=== PATIENT | female | born 1955 | race Caucasian/White ===

== ENCOUNTER → 2019-07-12 10:41 | Outpatient (CLI) | payer MEDICARE, OTHER, SELFPAY | PROVIDERS: Family Provider Family Medicine Geriatric Medicine; PCP Family Medicine Geriatric Medicine; Visit Provider Specialist | DX: N39.0 Urinary tract infection, site not specified (principal) | CPT/HCPCS: 87077; 87086; 87186 ==

== ENCOUNTER → 2022-04-13 10:04 | Outpatient (CLI) | payer MEDICARE, OTHER, SELFPAY ==
[2022-04-13 12:03] LABS: COVID19 -Nasal RAPID Negative (Negative)
== END ==
PROVIDERS: Family Provider Family Medicine Geriatric Medicine; PCP Family Medicine Geriatric Medicine; Referring Provider Orthopaedic Surgery; Visit Provider Orthopaedic Surgery
DX: Z20.822 Contact with and (suspected) exposure to COVID-19 (principal)
CPT/HCPCS: 87635; C9803

== ENCOUNTER 2022-04-14 06:12 | Day surgery (SDC) | payer MEDICARE, OTHER, SELFPAY ==
[2022-03-23 09:43] VITALS: BMI 25.8
[2022-04-14] VITALS (13 sets, daily range): BP systolic 103–131; BP diastolic 44–73; PULSE 54–600; RESP 10–18; TEMP 36.2–36.9; O2SAT 97–100; BMI 25.8
[2022-04-14] MEDS: LACTATED RINGERS 1,000 ML 42 ML IV ×2 (07:06→09:45)
--- NOTE | 2022-04-14 07:54 | PM.PREOP ---
Pre-operative Note COVID-19 COVID-19 status: Negative Interval Note History & Physical reviewed/Exam performed by Physician: Yes Changes to H&P: No
[2022-04-14] MEDS: CELECOXIB 200 MG CAPSULE PO (07:55)
[2022-04-14] MEDS: ACETAMINOPHEN 325 MG TABLET 975 MG PO (07:55)
--- NOTE | 2022-04-14 08:00 | DI.RAD.S_ITS ---
PROCEDURE: XR KNEE RT 1TO2V INDICATIONS: POST OP TOTAL KNEE TECHNIQUE: 2 view(s) of the knee acquired. COMPARISON: [facility] Gonzalez, XR KNEE ARTHRITIC SERIES BI, 10/24/2021, 10:14. FINDINGS: Bones: Patient is status post knee joint arthroplasty. Hardware components are in expected positions. Visualized bony structures are intact. Soft tissues: Overlying postoperative changes are noted. IMPRESSION: Expected postoperative changes following knee arthroplasty. Dictated by: Mitch Cat M.D. on 04/14/2022 at 16:30 Approved by: Mitch Cat M.D. on 04/14/2022 at 16:30
[2022-04-14] MEDS: VANCOMYCIN 1,000 MG/200 ML PIGGYBACK 200 MG IV (08:15)
[2022-04-14] MEDS: CEFAZOLIN 2 GM IN 0.9 % NACL 100 ML IV ×3 (08:15→23:40)
[2022-04-14] MEDS: TRANEXAMIC ACID 1,000 MG VIAL 2000 MG INJ ×2 (08:30→10:19)
--- NOTE | 2022-04-14 08:49 | SUR.OPER ---
Supine on padded OR bed. Pillow under head, arms secured on padded armboards <90 degree abduction. Safety belt across torso. Non-operative leg secured with tape over blanket over lower leg. Operative leg secured in [employer] positioner. Foam padded brace at thigh of operative leg.
[2022-04-14] MEDS: BUPIVACAINE 0.5% (PF) 30 ML, EPINEPHrine 0.15 MG INJ (10:00)
[2022-04-14] MEDS: SODIUM CHLORIDE IRRIG SOLUTION 250 ML, POVIDONE-IODINE SPONGE STICKS 1 APPLIC IRR (10:00)
[2022-04-14] MEDS: BUPIVACAINE LIPOSOME 266 MG/20 ML VIAL INJ (10:00)
[2022-04-14] MEDS: OXYCODONE IR 5 MG TABLET PO ×2 (10:55→20:33)
[2022-04-14] MEDS: METOCLOPRAMIDE 10 MG/2 ML INJ IV (10:56)
--- NOTE | 2022-04-14 11:04 | SUR.PHASEI ---
Addendum entered by Marian Khan R.N. 04/14/22 11:24: 1124: Report given to receiving RN using SBAR with time allowed for questions. Pt tranferred to room 203 with all personal belongings. Called to update spouse left message. Original Note: 1104: Pt A&Ox4, VSS, dressing C/d/I, reports pain 4-5/10 PRN given, spinal level at L5, taking PO without any issues and ready to transfer to room. Attempt to call report to floor, RN busy at this time, will return call when available. UGO Fonseca x [phone].
--- NOTE | 2022-04-14 12:52 | PC.NURSE ---
Addendum entered by Mary Lou Duffy R.N. 04/14/22 20:00: tolerated ambulating to/from bathroom w/ steady gait. after this was done a few times, bed alarm turned off, and when patient's in the room gave the ok to ambulate w/ his assist. encouraged patient and to call at any time if any questions or concerns. but patient seems highly motiviated to participate w/ therapy, and to get back on her feet quickly. she is in the room doing her PT exercizes. denies pain/discomfort, routine tylenol and ibuprofen covering her pain . tolerating IVF, iv abx. tolerating meals, and is in good spirits. voiding well. call from Dr Rock, asking if patient wants to stay or go home tonight. patient and opted to stay overnight. notified of above, and plans to d/c patient in the morning. Original Note: report from PACU given to UGO Sheldon. patient arrived to floor via stretcher and admitted to room 204 at 1135.
[2022-04-14] MEDS: ONDANSETRON 4 MG/2 ML INJ IV ×2 (13:09→20:34)
[2022-04-14] MEDS: polyethylene glycoL 3350 17 GM POWD.PACK PO (13:09)
[2022-04-14] MEDS: IBUPROFEN 400 MG TABLET PO ×4 (13:10→23:40)
[2022-04-14] MEDS: ACETAMINOPHEN 325 MG TABLET 650 MG PO ×3 (13:11→23:40)
[2022-04-14] MEDS: LACTATED RINGERS 1,000 ML 100 ML IV (13:13)
--- NOTE | 2022-04-14 16:25 | PT.IIE ---
Addendum entered and electronically signed by Shantell Randle PT 04/14/22 19:08: This is to certify that I reviewed and in direct supervision during this PT session Original Note: Current Diagnoses Unilateral primary osteoarthritis, left knee (04/14/22) Unilateral post-traumatic osteoarthritis, right knee (04/14/22) Surgery Performed Operation Date: 04/14/22 07:45 Actual Procedures p Total Knee Arthroplasty(Right) - Antoinette Rock MD Surgical History (Last Updated 03/23/22 @ 10:12 by Liza Alfaro RN) History of bunionectomy of right great toe History of laparotomy Hx of appendectomy Hx of knee surgery (1986) Hx of tonsillectomy Medical History (Last Reviewed 04/14/22 @ 06:59 by Geoff Keys RN) Chronic fatigue syndrome Fibromyalgia Hx of gastroesophageal reflux (GERD) Hypothyroidism Osteoarthritis Palpitations Suspected sleep apnea Physical Therapy Inpatient Evaluation/Re-Eval M1 PT/OT-IP Prior Functional Status Start: 04/14/22 17:18 Freq: NEEDED Status: Active Protocol: Document 04/14/22 16:25 (Rec: 04/14/22 19:06 [id number]) Medical Review Prior Functional Status Medical History Reviewed Yes Communication pt able to make needs known. Mobility and Gait pt reports ability to ambulate in household without use of AD. able to ambulate furthest distance of half a block due to limited strength and endurance caused by R knee pain. Social History Household Members spouse Living Arrangements House Number of Floors (Floors) One Floor Number of Stairs To Enter/Railing? pt reports 5 steps to enter with R rails. 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 M2 PT-IP Current Condition Start: 04/14/22 17:18 Freq: NEEDED Status: Active Protocol: Document 04/14/22 16:25 (Rec: 04/14/22 19:06 [id number]) Physical Therapy Current Condition Current Condition Evaluation Date 04/14/22 Treatment Diagnosis S/P R TKA; difficulty in walking Onset Date 04/14/22 M3 PT-IP Subjective Start: 04/14/22 17:18 Freq: NEEDED Status: Active Protocol: Document 04/14/22 16:25 (Rec: 04/14/22 19:06 [id number]) Subjective Physical Therapy Visit Type Type Initial Evaluation Visit Start Time 16:25 Visit Stop Time 17:08 Total Visit Minutes 43 Number of PUBLIC RELATIONS INTERN Visits 0 Physical Therapy Visit Comments Patient Comments pt agreeable to do PT M4 PT-IP Mobility and Gait Start: 04/14/22 17:18 Freq: NEEDED Status: Active Protocol: Document 04/14/22 16:25 (Rec: 04/14/22 19:06 [id number]) PT-Bed Mobility Assessment Supine to Sit Supine to Sit Standby Assistance Sit to Supine Sit to Supine Standby Assistance Scooting Scooting to Edge of Bed Standby Assistance PT-Transfer Assessment Sit to and From Stand Sit to and from Stand Standby Assistance,Contact Guard Assistance,Use of Upper Extremities Equipment Transfer Assistive Device Gait Belt,Front Wheeled Walker Orthotic/Prosthetic Devices or Brace: No Transfers Transfer Destination Chair Transfer Technique ambulation Transfer Ability Level of Assist Standby Assistance,Contact Guard Assistance Comments Mobility Comments BP in supine 129/59. pt completed supine to sit SBA, no cueing. completed sit to stand SBA to CGA with minimal cueing using FWW. pt ambulated ~15 ft to chair CGA with FWW with min cueing. pt completed sit to stand from chair SBA to CGA with FWW min cues. pt ambulated ~200ft to stairs SBA to CGA with FWW min cues. educated pt and spouse regarding stair climbing. pt ascended and descended stairs using both hands on R rail CGA with min cueing with PT, pt repeated with spouse assisting . spouse understood and safely assisted pt. pt ambulated ~ 200ft back to chair with FWW SBA to CGA, min cueing. pt requested to sit in chair, positioned, call light and table placed within reach. educated spouse on gait belt, spouse able to effectively demonstrate. Gait Assessment Gait Gait Assistance Required: Standby Assistance,Contact Guard Assist,1 Person Assist Distance (Feet) 200 Able to Maintain Weight Bearing Status Yes During Gait Assistive Devices Assistive Device Gait Belt,Front Wheeled Walker Orthotic/Prosthetic Devices or Brace: No Gait Deviations General Gait Pattern Within Normal Limits,Narrow Based Gait Factors Limiting Gait Function Factors Limiting Gait Function Decreased Activity Tolerance, Decreased Sensation,Decreased Strength,Limited Range of Motion,Pain,Poor Balance,Poor Safety Awareness Stair Climbing Assessment Evaluation Level of Assist On Stairs Contact Guard Assistance,1 Person Assistance Devices Stair Climbing Assistive Devices Right Railing Technique/Endurance Stair Climbing Direction Ascend and Descend Stair Climbing Technique Step to Step PT-Balance Assessment Sitting Balance and Reactions Static Sitting Balance Ability Normal Dynamic Sitting Balance Ability Normal Standing Balance and Reactions Static Standing Balance Ability Good Dynamic Standing Balance Ability Fair Device Used FWW M5 PT-IP Objective Assessments Start: 04/14/22 17:18 Freq: NEEDED Status: Active Protocol: Document 04/14/22 16:25 (Rec: 04/14/22 19:06 [id number]) Orientation Orientation/Cognition Level of Alertness Alert Orientation Name,Place,Situation Language Function Ability No Deficits Noted Safety Awareness Decreased Safety Awareness Memory Description No Deficits Noted Gross Range of Motion Upper Extremity ROM Assessment Within Functional Limits Lower Extremity ROM Assessment Right Impaired Impairments PROM R knee flexion: ~70 degrees AROM knee extension: ~5 degrees lacking Strength Lower Extremity Strength Assessment Right Impaired Hip 4/5 Knee 3+/5 Ankle 4+/5 Sensation Assessment Sensation Gross Sensation Right LE Impaired Sensation Description Numbness Comments Sensation Comments pt reports slight numbness in R lower leg. Muscle Tone Muscle Tone WNL Yes M6 PT-IP Treatment Start: 04/14/22 17:18 Freq: NEEDED Status: Active Protocol: Document 04/14/22 16:25 (Rec: 04/14/22 19:06 [id number]) Physical Therapy Treatment Education Education Provided Precautions,Weight Bearing Status,Post-Op Packet,Safety M7 PT-IP Assessment and Plan Start: 04/14/22 17:18 Freq: NEEDED Status: Active Protocol: Document 04/14/22 16:25 (Rec: 04/14/22 19:06 [id number]) PT Summary Assessment and Plan Potential Rehabilitation Potential Good Status of Condition at Evaluation Stable Summary Impairments Pain,ROM,Strength,Balance, Sensation,Bed Mobility, Transfers,Gait,Activity Tolerance Progress Towards Goals Slow Progress due to Pain Assessment Summary pt requires SBA to CGA for mobility using FWW. Caregiver education was provided to spouse and he is able to safely provide assistance, thus, will reccomend discharge to home. will continue to assess progress. Goals Bed Mobility Goal Independent Transfer Goal Independent,Front Wheeled Walker Gait Goal Independent,Front Wheel Walker Gait Distance 300 Other Goals pt will be able to ascend and descend 5 steps with R rail SBA with no cues. Days to Meet Goals 3 Frequency of Treatment Frequency Of Treatment Twice a Day Treatment Plan Physical Therapy Treatment Plan Bed Mobility Training,Transfer Training,Gait Training, Therapeutic Exercise,Balance Retraining,Post Op Education, Discharge Planning,Hot or Cold Pack,Neuromuscular Re-ed, Coordination Retraining,Manual Therapy Weight Bearing Status Weight Bearing Status Weight Bear as Tolerated Allowed Weight Bearing Amount (enter % WBAT on R LE. or #) (%) Recommendations To Nursing Amount of Assist Needed 1 Person Assist Discharge Recommendations PT Discharge Recommendations Home with Assistance, Outpatient PT Transportation Needs at Discharge Private Vehicle
--- NOTE | 2022-04-14 17:44 | PM.OP.1 ---
Operative Date/Time/Diagnoses Date of procedure: 04/14/22 Time of procedure: 17:45 Pre-op diagnosis: Severe right knee osteoarthritis, history of previous MCL repair with retained internal fixation Post-op diagnosis: same Procedure & Clinicians Procedure: Right total knee arthroplasty Same procedure as scheduled: Yes Indications: The patient has had progressively worsening right knee pain with radiographic changes consistent with arthritis. Non-operative management has failed and the patient has requested total knee replacement. The risks, benefits and alternatives to surgery were discussed with the patient prior to proceeding. Risks discussed included, but were not limited to, failure to relieve pain, stiffness, infection, nerve damage, deep venous thrombosis, pulmonary embolism, stroke, coma, heart attack, permanent paralysis and , as well as the potential need for eventual revision of the prosthetic. Surgeon: Antoinette Rock Skin Care Specialist: Scotty Espinoza Anesthesia Type: General Operative Notes Findings: Severe right knee osteoarthritis, adequate stability Closure Type: primary Specimen(s): none sent Prosthetic devices, grafts, tissues, transplants, or devices: [facility] [employer] [facility] 2 size 5 femur, size 4 tibia, 11 mm poly constrained, 35 x 7.5 mm patella Estimated Blood Loss (mL): 250 Blood products transfused: none Tourniquet time (min): 89 Procedure in detail: The patient was seen in the pre-operative area, where the patient identified the right knee as the operative site and this was marked with my initials. The patient received pre-operative antibiotics, and was taken to the operating room and placed on the operative table in the supine position. After satisfactory anesthesia, a multimedia technician out was performed. The right leg was encircled with a tourniquet about the proximal thigh, and the leg was prepared from the toes to the tourniquet with ChloroPrep in the usual fashion and draped through sterile drapes. The leg was elevated and exsanguinated with Eschmark bandage and the tourniquet inflated to [250] mmHg pressure. The knee was approached through an approximately 18 cm incision centered over the patella and carried into the knee through a medial parapatellar arthrotomy. A portion of the medial and lateral meniscus was resected. Soft tissue was carefully mobilized around the patella the patella was measured with a caliper. Bone was resected from the patella and the patellar height was reconstituted with up an appropriate sized patellar component. A cover was then placed on the patella. A small amount of additional medial and lateral meniscus was resected. The distal femur was cut at 5?. A [+2] cut was used. It looked like an appropriate distal femoral cut and the cut was made without difficulty. An extramedullary guide was used for the tibial cut. 10 mm was resected off the least affected side.The tibia was prepared. The rotation was assessed. The patient was placed in extension residual medial and lateral meniscus as well as any residual bone was carefully resected. [No] additional tibia was resected. Hemostasis was achieved especially posteriorly. Additional local was injected into the posterior capsule. The extension gap was assessed and additional releases for gap balancing were performed as necessary. It was checked with the gap manager credit collections. The femoral component was trial was placed and the notch was finished. The rotation was assessed and the appropriate size femoral guide was placed on the distal femur and finishing cuts were made. There was no evidence of notching. The anterior, posterior and chamfer cuts were then made. The posterior osteophytes and soft tissues were then removed. The posterior capsule was injected with part of a mixture of 60 ml 0.25% Marcaine mixed with 20 ml Exparel for post operative pain control. The remainder of this mixture was injected into the capsule and subcutaneous tissues during cement curing. The tibial and femoral components were then placed and the knee placed through a range of motion. Range of motion was [0-130], with good stability throughout the range. The trials were then removed, and the tibia was finished. The tibial base plate was meticulously placed. Rotation was assessed. It was pinned into place. It was drilled without difficulty. It was then meticulously punched. I did it sequentially as I was anticipating potential interaction with a tibial staple. One of the tines the tibial staple was visualized in the pathway of the punch. I carefully worked around the nasrin and I checked medially and thought about removing the stable but actually felt that it was better for the patient to leave the staple intact as I could adequately seat the tibial component. There was slight attenuation of the medial collateral ligament consistent with previous injury and tear. It was opted to use a constrained poly a to protect the residual medial collateral ligament tissue. The bone was prepared with pulsatile lavage, and dried with a sponge. Cement was applied and the final prosthetics placed. Excess cement was removed during and after cement curing. A brief Betadine soak was performed. After confirming there was no extruded cement posteriorly, the final tibial insert was placed. The knee was copiously irrigated and the tourniquet deflated. Hemostasis was obtained with the Bovie cautery. The capsule was closed with interrupted nonabsorbable suture. The subcutaneous layer was closed with barbed sutures, and the skin with a running 3-0 V-Lock suture and Surgical glue. An Aquacel Ag dressing was applied and the patient was taken to recovery having tolerated the procedure well. Complications: none Post-operative Condition: stable Disposition: Acute Care Plan for aftercare: The patient will be maintained on a standard total knee replacement protocol with weight bearing as tolerated. The patient will receive aspirin and sequential compression devices for DVT prophylaxis. The patient will be discharged home when safe for the home environment.
[2022-04-14] MEDS: ASPIRIN EC 81 MG TABLET PO (20:32)
[2022-04-14] MEDS: DOCUSATE 100 MG CAPSULE PO (20:33)
[2022-04-15] MEDS: ONDANSETRON 4 MG ODT PO ×2 (01:39→08:18)
[2022-04-15] MEDS: OXYCODONE IR 5 MG TABLET PO ×2 (01:39→08:18)
[2022-04-15] MEDS: LEVOTHYROXINE 75 MCG TABLET PO (06:09)
[2022-04-15] MEDS: ACETAMINOPHEN 325 MG TABLET 650 MG PO (06:09)
[2022-04-15] MEDS: IBUPROFEN 400 MG TABLET PO ×2 (06:09→08:19)
[2022-04-15 06:28] LABS: Hematocrit 36.7 % (36-46); Hemoglobin 12.4 g/dL (12.0-16.0)
[2022-04-15 07:45] VITALS: BP 114/60; PULSE 60; RESP 16; TEMP 36.7; O2SAT 97
--- NOTE | 2022-04-15 07:49 | PM.DS.1 ---
History of Present Illness History of Present Illness Date Patient Seen: 04/15/22 Time Patient Seen: 07:49 Chief complaint: RT TKA 04/14 Narrative: Patient is complaining of [id number] right knee pain this morning. She is somewhat nauseous, but the Zofran is helping. The oxycodone is helping significantly with her pain. She is working with physical therapy. Overall she is feeling well and would like to go home today. Discharge Providers Provider Discharge Date: 04/15/22 Primary care physician: Angelo Galdamez MD Consults: 04/14/22 07:41 Consult to Anesthesiology Routine Comment: Consulting Provider: Anesthesiologist Reason for consultation: Regional block for post operative pain control 04/14/22 11:25 Consult to Discharge Planning Routine Comment: Consult to Physical Therapy Evaluate & Treat Comment: Physician Instructions: postop TKA protocol Consult to Respiratory Therapy Evaluate & Treat Comment: Physician Instructions: Evaluate and treat Discharge provider: Grace Dyson PA-C Summary Hospital Course Discharge Diagnosis: Severe right knee osteoarthritis, history of previous MCL repair with retained internal fixation Hospital Course: Operative Date/Time/Diagnoses Date of procedure: 04/14/22 Time of procedure: 17:45 Procedure & Clinicians Procedure: Right total knee arthroplasty Same procedure as scheduled: Yes Indications: The patient has had progressively worsening right knee pain with radiographic changes consistent with arthritis. Non-operative management has failed and the patient has requested total knee replacement. The risks, benefits and alternatives to surgery were discussed with the patient prior to proceeding. Risks discussed included, but were not limited to, failure to relieve pain, stiffness, infection, nerve damage, deep venous thrombosis, pulmonary embolism, stroke, coma, heart attack, permanent paralysis and , as well as the potential need for eventual revision of the prosthetic. Surgeon: Antoinette Rock Sleeping Car Conductor: Scotty Espinoza Anesthesia Type: General Operative Notes Findings: Severe right knee osteoarthritis, adequate stability Closure Type: primary Specimen(s): none sent Prosthetic devices, grafts, tissues, transplants, or devices: [employer] BCS 2 size 5 femur, size 4 tibia, 11 mm poly constrained, 35 x 7.5 mm patella Estimated Blood Loss (mL): 250 Blood products transfused: none Tourniquet time (min): 89 Status at Discharge Cognitive/behavioral status at discharge: at baseline, oriented Functional status at discharge: uses cane/walker Overall status at discharge: patient is progressing back to baseline Exam Vital Signs (past 8 hours): Oxygen Delivery Method Room Air Oxygen Flow Rate 0 Narrative Exam Narrative: Pleasant 59-year-old female, resting comfortably in her chair, no acute distress. Dressing is clean, dry, intact. Bilateral lower extremity: Motor functions are grossly intact, sensation is grossly intact to light touch, calves are soft and nontender to palpation. Objective Labs Result Diagrams: 04/15/22 06:10 Labs: Laboratory Results - last 24 hr 04/15/22 06:10 Hgb 12.4 Hct 36.7 PFSH Medical History Chronic fatigue syndrome Fibromyalgia Hx of gastroesophageal reflux (GERD) Hypothyroidism Osteoarthritis Palpitations Suspected sleep apnea Surgical History History of bunionectomy of right great toe History of laparotomy Hx of appendectomy Hx of knee surgery (1986) Hx of tonsillectomy Social History household members: spouse Smoking Status: Never smoker alcohol intake: current Discharge Assessment & Plan Assessment and Plan Assessment: -stable status post right total knee arthroplasty -postop nausea and vomiting, resolving Plan of Treatment: -mobilize with PT. Weightbearing as tolerated front wheel walker. -continue multimodal pain management -aspirin 81 mg b.i.d. x6 weeks for DVT prophylaxis -DC home when cleared by PT Discharge Plan Discharge Plan Patient Disposition: Home Discharge orders & Medications Discharge Orders: Discharge (Order); Ordered 04/15/22 Ordered By: Grace Dyson Prescriptions: New acetaminophen 500 mg capsule 500 mg PO Q4H MDD Max 3000 mg per day PRN (Reason: fever or pain) Qty: 90 0RF aspirin 81 mg Tablet,Delayed Release (Dr/Ec) 81 mg PO BID 42 Days Qty: 84 0RF Rx Instructions: Prevent blood clots docusate sodium 100 mg Capsule 100 mg PO BID PRN (Reason: Constipation from narcotic pain meds) Qty: 20 0RF ibuprofen 400 mg Tablet 400 mg PO Q4HR MDD Max 2400 mg per day PRN (Reason: Pain/inflammation) Qty: 90 0RF ondansetron 4 mg Tablet,Disintegrating 4 mg PO Q4HR PRN (Reason: Nausea And Vomiting) Qty: 14 0RF oxycodone 5 mg Tablet 5 mg PO Q3HR PRN (Reason: Pain, Moderate (4-6)) Qty: 42 0RF Continued CMP Estradiol 0.009% Vaginal Cream 0.5 gram topical 2XW Qty: 30 11RF Rx Instructions: Apply 0.5gm to external genitalia twice weekly. levothyroxine 75 mcg capsule 75 mcg PO DAILY biest/progesterone cream 0.5 ml topical DAILY Discontinued acetaminophen 650 mg Tablet Extended Release 650 mg PO DAILY PRN (Reason: Pain) ibuprofen 200 mg Tablet 200 mg PO DAILY PRN (Reason: Pain) Follow up/Referrals: Angelo Galdamez MD [Primary Care Provider] - Antoinette Rock MD [Physician] - (10-14 days for postoperative visit) Diet/Activity/Treatments Diet: Diet as Tolerated Other treatments: Medications: -Aspirin 81mg twice daily x6 weeks to prevent blood clots. -OTC Tylenol 500 mg 1 tablet every 4 hours as needed for pain/fever. Max 6 tablets per day. -Ibuprofen 400 mg 1 tablet every 4 hours as needed for pain/inflammation. Max 2,400 mg per day. -Oxycodone 5 mg take 1-2 tablets every 4 hours as needed for moderate-severe pain (narcotic pain medication). -As needed medications: -Ducolax and /or MiraLax as needed for constipation from narcotic pain medications. -Pepcid AC as needed for stomach upset (usually from aspirin or ibuprofen). Dressing/Wound care: -Remove the Man wrap 48 hours after surgery. -Keep Aquacell dressing in place until postoperative follow-up office visit. -Keep Jesse dressing in place until postoperative follow-up office visit. The Jesse battery/pump should last for 7 days from surgery. Once the pump stops, please cut off hose at base of dressing and cover with a bandaid/part of a dressing from Jesse package. The monitor can be thrown away and recycle the batteries. Leave the remaining dressing in place. -Jesse info: The Jesse dressing provides suction known as negative pressure wound therapy, which draws out excess fluid from the wound and protects the incision. It also helps to prevent bacteria from entering the wound or incision. -Okay to shower. Keep wound out of direct water stream. No soaking or submerging until all the scabs fall off (approximately 4-6 weeks). -No lotions, ointments, or scar creams directly to the incision until the wound is healed (4-6 weeks), -Please call the office if dressing becomes wet, soiled, or saturated. Activities: -Weight-bearing as tolerated. Use front wheeled walker, and progress to cane when safe. -Continue with home exercises as directed by your physical therapist. -Elevate ?toes above the nose if you have significant swelling in your lower leg. (A wedge pillow is easiest.) -Ice your incision as needed for pain/inflammation/swelling. Protect your skin with a folded pillowcase. -Incentive Spirometer (breathing device from [facility]): 5-10xs every hour while awake for the first 1-2 weeks. Follow-up: -Follow-up with your surgeon or PA in the office in 10-14 days after surgery. -Follow-up with your surgeon 6 weeks postoperatively. Call the office if you have chest pain, shortness of breath, significant swelling that will not resolve with elevating, fever over 101?, significantly worsening pain, or are concerned you might need to go to the Emergency Room. [facility]: [phone] Skin/Wound/Dressing Care Report to your healthcare provider any signs of infection, such as:: chills, fever, night sweats, unusual drainage and unusual redness Visit Report/Discharge Packet Instructions: DI for Knee Replacement Stand Alone Forms: Surgery Discharge Discharge Data Primary Care Provider: Angelo Galdamez Attending Provider: Antoinette Rock
[2022-04-15] MEDS: ASPIRIN EC 81 MG TABLET PO (08:19)
[2022-04-15] MEDS: DOCUSATE 100 MG CAPSULE PO (08:19)
--- NOTE | 2022-04-15 09:25 | PT-IP ANOTE ---
Attempted to see pt this AM, she refused PT stating she feels ready to go home and has no further needs. Begins OPPT on Wednesday.
--- NOTE | 2022-04-15 10:34 | CM.DANOTE ---
DCP: Case received, EMR reviewed and met with patient. Introduced self and role. Patient's spouse, Roly, was as at bedside. Was able to obtain information regarding patient's baseline activity status prior to surgery. DCP assessment completed with information currently available. Patient is a 67 year old female who admitted yesterday morning to the care of the orthopedic team. PCP: Dr. Galdamez. Payer: confirmed: Medicare/[employer]. Patient came to the hospital via private vehicle for a surgical procedure. Patient had Right total knee arthroplasty. Patient has history of severe right knee osteorthritis. Met with patient and spouse in her room. She was sitting up in bed, alert and oriented. Confirmed that she [place] spouse [place] At patient's baseline, she is independent, and drives. They have 5 stairs to enter the home. P: Patient has discharge orders for today, and will be working with P.T. again today. She is going to be doing outpatient P.T. on the [place]. Brit James RN/Meteorology Instructor Discharge Planning/Care Management Advanced directive, confirm from FAMILY Start: 04/14/22 13:22 Freq: Q24H Status: Active Protocol: Document 04/14/22 13:22 AKP (Rec: 04/14/22 13:38 AK [id number]) Advance Directive, confirm on record Time 13:22 Person contacted pt brought in Copy received Yes Advanced directive available on record Yes CM Discharge Assessment Start: 04/15/22 10:22 Freq: Status: Active Protocol: Document 04/15/22 10:22 (Rec: 04/15/22 10:34 [id number]) Discharge Planning Assessment Assigned Letter Carrier Brit James RN/Meteorology Instructor Advance Directives? Yes Advance Directives on File No History Provided By Patient,Medical Record Prior Living Arrangements House Household Members spouse Type of transporation used prior to Drives own vehicle admit Independent with ADL's Yes Is patient alert and oriented? Yes Caregiver for Another No Patient/Family Preference OP PT Therapy Barriers to Discharge No Referrals Initiated None needed Whiteboard Updated in Patient Room with Yes name and ext. # of Letter Carrier Review Status In Process Next Review Type Continued Stay Review Pre-Anesthesia Assessment Start: 03/23/22 09:43 Freq: Status: Active Protocol: Document 03/23/22 09:43 CAB (Rec: 03/23/22 10:35 [facility] [id number]) Pre-Anesthesia Assessment PAC Comment Wants to be called Makayla Gastelum Preferred Name Makayla Gastelum Patient Information Reviewed Via Phone Assessment Assessment Completed With Patient Comment Labs/ECG done, not here, COVID screen @ [facility] 04/13/22 Primary Care Provider Angelo Galdamez Seen Specialist in Last 12 Months Yes Specialist Seen Liner Helper,ENT,Orthopedist Primary Language Bulgarian Mortgage Lender Required No Height 5 ft 7 in Weight 165 lb Body Mass Index (BMI) 25.8 Hearing Ability Normal Visual Assist Glasses Dentition Type Teeth, Natural Present Barriers to Learning None Hx Anesthesia Reactions No: Suspected ORTIZ, starts 2 day home test 03/23/22 Additional comment First home test showed hypoxia , apnea Hx Family Anesthesia Reaction No: Pt is adopted Hx Malignant Hyperthermia No Hx Blood Transfusions No Anesthesia Review Requested No alcohol intake current alcohol intake frequency holidays/special occasions only Smoking Status Never smoker Substance Use Type does not use Pain Present Pain Reported Musculoskeletal Symptoms Joint Pain History of Falling (Recent or History of No ) Patient is completely paralyzed or No completely immobile Mental Status Oriented to own ability Is patient on oxygen? No Does patient have EDMONDS/SOB No Hx Sleep Apnea No Suspected Sleep Apnea Yes: Pt is having 2 day home test 03/23/22 Currently Taking a Beta Miguel Angel No Can You Climb a Flight of Stairs Without Yes SOB Hx Chest Pain No Hx SOB No Hx Syncope or Dizziness No Anti-Coagulant Therapy No Has a Liner Helper Yes: Dr. Martinez-visit 03/18/22 for palpitations Cardiac Testing No Hx Pacemaker/ICD No Pacemaker Rep Required? No Cardiac Clearance Received Not Applicable Comment Cardiac records scanned Diet Type At Home Other dysphagia No: Paleo diet Urinary Catheter Present No Hx Urinary Self Catheterization No Diabetes No Patient No Lactating No Presence of External or Internal Medical Yes: Right great toe, staple Devices in right knee Have you had any close contact with No someone diagnosed with COVID-19? Received a COVID vaccine? Yes: Pt does not plan to get second booster Received all doses? Yes Marital Status Lives With spouse Prior Living Arrangements House Number of Floors (Floors) One Floor Support System Spouse Does the Patient Have Assistance After Yes Surgery Patient Discharge Plan Description Return Home Comment Pt advised 1 night length of stay per surgeon Additional comment Lives on [facility] Feels Safe in Current Environment Yes Been Physically Hurt or Threatened By a No Person in Current Environment Do you have thoughts of harming yourself None or others? Are you currently considering suicide? No Do you have a plan to hurt yourself or No Plan others? Do You Have Any Spiritual Beliefs That No May Affect Your HC Choices? Do You Have Any Cultural Practices That No May Affect Your HC Choices? Comment Jew Who Can We Speak to About Patient's Care Family, friends Identifying Code for Release of Patient Declines to issue Information Health Care Proxy/Next of Kin Roly () Health Care Proxy Emergency Contact Name Roly () Emergency Contact Advance Directives? Yes Advance Directives on File No Requested Patient Bring Advanced Yes Directives DOS Power of Medical Assistant Yes Power of Medical Assistant Name Roly () Power of Medical Assistant PAC Instructions Do not shave/clip surgical site,Durable medical equipment ,Medications to take/avoid, Nasal antibiotic,No ETOH/ petroleum product on skin DOS, NPO,Post-op transportation,Pre -surgical wash,Sturdy shoes/ comfortable clothes,Do not bring valuables and remove jewelry
--- NOTE | 2022-04-15 10:42 | PC.NURSE ---
Day shift: Paperwork signed and all questions answered. ANNELISE wrap removed per Dr Rock this AM. Dressing is intact. CMS ok. Steady on feet. scripts sent electronic to Pt's pharmacy. Pt has all personal belongings. [place] ferry pass. New ice packs given to Pt just prior to d/c. Taken to car via WC by JUSTIN Aquino at approx 1045. Pt's Spouse is driving her home to [facility].
[2024-06-08 09:49] VITALS: BMI 25.9
== END 2022-04-15 10:54 | disposition home or self-care (01) ==
LOC: OR 06:16 → AC 06:17
PROVIDERS: Family Provider Family Medicine Geriatric Medicine; PCP Family Medicine; Referring Provider Orthopaedic Surgery; Visit Provider Orthopaedic Surgery
PROC: 0SRC0JZ Replacement of Right Knee Joint with Synthetic Substitute, Open Approach (ICD-10-PCS; CPT 27447; principal; 2022-04-14 07:45)
DX: M17.11 Unilateral primary osteoarthritis, right knee (principal); M79.7 Fibromyalgia
CPT/HCPCS: 27447; 36415; 73560; 85014; 85018; 97161; 97530; C1776; C1713; C9290; J0171; J0690; J2250; J2405; J2765; J3010

== ENCOUNTER → 2023-09-27 12:45 | Outpatient (CLI) | payer MEDICARE, OTHER, SELFPAY ==
[2022-04-14 13:14] VITALS: BMI 25.8
--- NOTE | 2023-09-27 12:47 | DI.MG.S_ITS ---
BILATERAL DIGITAL SCREENING MAMMOGRAM 3D/2D WITH CAD: 09/27/2023 CLINICAL: Routine screening. Comparison is made to exams dated: 02/29/2012 mammogram, 07/11/2010 mammogram, and 10/29/2008 mammogram - [facility]. Both breasts are heterogeneously dense, which may obscure small masses (category c / 51-75% glandular tissue). Current study was also evaluated with a Computer Aided Detection (CAD) system. No significant masses, calcifications, or other findings are seen in either breast. There has been no significant interval change. IMPRESSION: NEGATIVE There is no mammographic evidence of malignancy. A 1 year screening mammogram is recommended. Based on the Tyrer Cuzick model (a risk assessment model) the patient's lifetime risk is 7.5% and her 10 year risk is 4.5%. According to the ACR, ACS, and NCCN guidelines, an annual breast MRI exam along with mammogram is recommended if the patient's lifetime risk is 20% or greater. This exam was interpreted at Station ID: [id number]. NOTE: For mammograms, a report in lay terms will be sent to the patient. Approximately 15% of breast malignancies will not be visualized mammographically. In the management of a palpable breast mass, a negative mammogram must not discourage biopsy of a clinically suspicious lesion. Electronically Signed By: Ramiro reyes/danny:09/27/2023 19:00:07 letter sent: Normal Exam ACR BI-RADS Category 1: Negative 3341F
== END ==
PROVIDERS: Family Provider Family Medicine Geriatric Medicine; PCP Family Medicine; Referring Provider Family Medicine; Visit Provider Family Medicine
DX: Z12.31 Encounter for screening mammogram for malignant neoplasm of breast (principal); R92.333 Mammographic heterogeneous density, bilateral breasts
CPT/HCPCS: 77063; 77067

== ENCOUNTER 2024-06-12 11:41 | Day surgery (SDC) | payer MEDICARE, OTHER, SELFPAY ==
[2024-05-22 08:40] VITALS: BMI 25.8
[2024-06-08 11:17] VITALS: BMI 25.9
[2024-06-12] VITALS (8 sets, daily range): BP systolic 114–129; BP diastolic 59–75; PULSE 70–100; RESP 10–16; TEMP 36.1–36.8; O2SAT 98; BMI 25.9
--- NOTE | 2024-06-12 | PATH_ITS ---
[facility] Accession Number: [id number] No. of containers..02 Tissue . 01 Material submitted: . PART A: endometrium - MYOSURE ENDOMETRIAL POLYP PART B: endometrium - ENDOMETRIAL CURRETTINGS . 01 Diagnosis: A. MYOSURE ENDOMETRIAL POLYP, BIOPSY: Fragments of benign endometrial polyp. Associated inactive/atrophic endometrium. Negative for atypia, hyperplasia and malignancy. . B. ENDOMETRIUM, CURETTINGS: Rare strips of benign inactive/atrophic endometrial epithelium, overall suboptimal to evaluate for endometrial pathologies. Predominantly mucoinflammatory material and benign endocervical/ectocervical epithelium present. MRV 06/14/2024 1347 Local . 01 Electronically signed: . Daysi Martinez MD, Pathologist NPI- [id number] . 01 Gross description: . A. Received in formalin with two patient identifiers and MyoSure polyp, are three neil soft tissue fragments, 0.3 to 0.5 cm in greatest dimension, submitted in A1. B. Received in formalin with two patient identifiers and endometrial curettings, are multiple neil and dark brown soft tissue fragments admixed with mucoid material aggregating to 3.0 x 2.8 x 0.6 cm. Filtered and submitted in B1. ([id number]) /MRV 06/13/2024 1628 Local . 01 Pathologist provided ICD-10: N84.0, N90.60, R93.5, Z79.890 . 01 CPT . 329424, [id number] Specimen Comment: A courtesy copy of this report has been sent to [facility] Pathology Performed at: [address] [address], [place], [place] [id number] MD Vj Sarkar MD Phone: [phone]
--- NOTE | 2024-06-12 12:36 | PM.GYNHP.1 ---
History of Present Illness History of Present Illness Narrative: Makayla Finch is a 69 year old nulliparous female who presents for scheduled outpatient surgical procedure, hysteroscopy with D&C, placement of LNG-IUD secondary to abnormal pelvic US with spotting/PMB on HRT with concern for inadequate endometrial protection. Patient had telehealth encounter 06/09/24 to discuss consideration of opportunistic labiaplasty at time of procedure. Today patient states that she has decided against labiaplasty as she is worried about the recovery. She would like to proceed with the hysteroscopy/D&C and placement of mirena IUD as scheduled. Denies significant interval changes in personal or family health history since time of last office encounter 05/03/24 [facility] Medical History (Updated 06/12/24 @ 10:08 by Camilla Claudio MD) Labia minora hypertrophy Allergies Migraines Headache Mumps Measles Chicken pox Fibroids Endometriosis (~1983) Interstitial cystitis (~2020) Colon polyps (~2013) Hormone replacement therapy, postmenopausal Abnormal ultrasound of endometrium Osteoarthritis Hx of gastroesophageal reflux (GERD) (~2013) Palpitations Suspected sleep apnea Chronic fatigue syndrome (~1987) Fibromyalgia (~1994) Hypothyroidism (~2007) Surgical History (Updated 06/04/24 @ 19:56 by Nidhi Pardo) Anesthesia History of total knee replacement History of oophorectomy History of laparoscopy (~1985) History of bunionectomy of right great toe Hx of knee surgery (1986) History of laparotomy Hx of appendectomy Hx of tonsillectomy Family History (Updated 06/04/24 @ 19:57 by Nidhi Pardo) Father COPD (chronic obstructive pulmonary disease) Mother Alzheimer's disease Social History household members: spouse Smoking Status: Never smoker alcohol intake: current Meds Home Medications and Allergies Home Medications Medication Instructions Recorded Confirmed Type levothyroxine 75 mcg capsule 75 mcg PO DAILY 09/01/18 06/12/24 History CMP Estradiol 0.009% Vaginal Cream 0.5 gram topical 2XW HRT #30 grams 04/06/19 05/03/24 Rx biest/progesterone 0.5 ml topical DAILY 07/12/19 05/03/24 History ibuprofen 400 mg tablet 400 mg PO Q4HR PRN 04/15/22 06/12/24 Rx Pain/inflammation #90 tabs Allergies Allergy/AdvReac Type Severity Reaction Status Date / Time nitrofurantoin Allergy Intermediate Rash Verified 06/12/24 12:00 [From Macrobid] adhesive tape Allergy Mild Nausea Verified 06/12/24 12:00 Opioids - Morphine Analogues AdvReac Severe Nausea Verified 06/12/24 12:00 Review of Systems Review of Systems ROS: Yes All systems reviewed with the patient and are negative except as otherwise documented Exam Vital Signs (past 8 hours): - 06/12/24 12:08 Temperature 97.2 F L Pulse Rate 85 Respiratory Rate 16 Blood Pressure 129/75 Pulse Oximetry 98 Oxygen Delivery Method Room Air Oxygen Delivery Method Room Air Const General: cooperative, healthy appearing and comfortable Nutritional Appearance: average body habitus Orientation: alert, awake and oriented x3 Limitations: mental status not altered Resp Effort & Inspection: normal respiratory effort and able to speak in complete sentences Cardio Pulses: normal peripheral pulses Other: normal external female genitalia perineum and anus without rash or lesion bilateral hypertrophy of apical labia minora, extension approx 4cm past labia majora Skin General: no rashes or lesions noted Neuro General: patient alert, patient awake and patient oriented x3 Extrem General: normal to inspection Psych Mental Status: mental status grossly normal Judgment: judgment good Assessment & Plan Assessment and plan (1) Hormone replacement therapy, postmenopausal: Status: Acute (2) Abnormal ultrasound of endometrium: Status: Acute Assessment & Plan narrative: 69yo nulliparous female with h/o abnormal pelvic US on HRT with concern for inadequate endometrial protection, labial hypertrophy Patient has decided against concomittant labiaplasty at time of today's procedure, OR team updated anticipated postoperative course reviewed routine f/u in office as scheduled dispo: to OR Time-Based Coding :: [TOTAL MINUTES] spent with patient and on the chart (including review of chart, obtaining history, exam, reviewing outside data, placing orders, documenting exam and treatment plan, and counseling patient) on [DATE].
--- NOTE | 2024-06-12 12:41 | PM.PREOP ---
Pre-operative Note Interval Note History & Physical reviewed/Exam performed by Physician: Yes Changes to H&P: No H&P completed within 30 days and has changed as indicated here:: 06/12/24 ASA Class (for procedural sedation): II
--- NOTE | 2024-06-12 12:47 | SUR.OPER ---
Lithotomy on padded OR bed, head on pillow, arms secured on padded arm boards at <90 degrees abduction. Legs secured in padded yellow fins stirrups.
[2024-06-12] MEDS: ACETAMINOPHEN IV 1,000 MG/100 ML VIAL 400 MG IV (13:17)
--- NOTE | 2024-06-12 13:40 | PM.OP.1 ---
Operative Date/Time/Diagnoses Date of procedure: 06/12/24 Time of procedure: 13:40 Pre-op diagnosis: abnormal pelvic US, PMB on HRT Post-op diagnosis: same Procedure & Clinicians Procedure: hysteroscopy, polypectomy, dilation and curettage, placement of mirena IUD Same procedure as scheduled: Yes Indications: PMB on HRT abnormal pelvic imaging Surgeon: Camilla Claudio Click Yes if Unassisted: No Anesthesia Type: General Operative Notes Findings: normal external female genitalia, perineum and anus stenotic atrophic cervix atrophic endometrium with noted vascular polyp, mid-corpus/posterior bilateral ostia visualized Specimen(s): none sent (endometrial polyp; endometrial currettings ) Estimated Blood Loss (mL): 5 Procedure in detail: Pt was taken to the operating room, transferred to OR table and anesthesia was induced with placement of LMA.? Pt had her legs placed in Boyd stirrups and an exam under anesthesia was performed. The patient was prepped and draped in a sterile fashion.? A time out was performed. ?The bladder was emptied via straight catheter in sterile fashion.? A sterile speculum was inserted into the vagina.? The cervix was visualized and grasped anteriorly using a single tooth tenaculum.? The uterus sounded to 8 cm and the cervical os was serially dilated using Mccoy dilators up to 17f to allow for passage of the hysteroscope.? The 5mm 0 degree hysteroscope was then inserted into the uterus with findings as noted.? The small] Myosure device was introduced and the endometrium including visualized pathology was fractionally resected under direct visualization.? The hysteroscope was removed and the uterus was sharply curetted until a gritty texture was noted throughout.? Mirena IUD obtained from [employer] supply ( [id number] Exp Lot [id number]) and strings trimmed to 3cm. The tenaculum was removed and hemostasis was noted at insertion sites after brief application of silver nitrate.? The speculum was removed and hemostasis was again noted to be excellent.? The patient then had her legs taken out of stirrups.? The patient tolerated the procedure well and without difficulty.? The patient was awakened from anesthesia and taken to PACU in stable condition. Complications: none Post-operative Condition: stable Disposition: PACU Plan for aftercare: dc to home, routine f/u in office as scheduled
[2024-06-12] MEDS: LACTATED RINGERS 1,000 ML 42 ML IV (14:52)
== END 2024-06-12 14:48 | disposition home or self-care (01) ==
PROVIDERS: Family Provider Family Medicine Geriatric Medicine; PCP Family Medicine; Referring Provider Obstetrics & Gynecology; Visit Provider Obstetrics & Gynecology
PROC: 0UDB8ZZ Extraction of Endometrium, Via Natural or Artificial Opening Endoscopic (ICD-10-PCS; CPT 58558; principal; 2024-06-12 13:30)
DX: R93.5 Abnormal findings on diagnostic imaging of other abdominal regions, including retroperitoneum (principal); Z79.890 Hormone replacement therapy; N90.60 Unspecified hypertrophy of vulva; Z30.2 Encounter for sterilization; N88.2 Stricture and stenosis of cervix uteri; N84.0 Polyp of corpus uteri
CPT/HCPCS: 58558; 58300; J0134; J1100; J1885; J2405; J2704; J3010; J7298

== ENCOUNTER → 2024-12-18 12:28 | Outpatient (CLI) | payer MEDICARE, OTHER, SELFPAY ==
[2024-05-22 08:40] VITALS: BMI 25.8
--- NOTE | 2024-12-18 12:30 | DI.MG.S_ITS ---
MM screening mammo BI: 12/18/2024. BI-RADS: 1 CLINICAL: 69-year old female for bilateral screening mammogram. Tyrer-Cuzick lifetime risk of 6.1%. No personal or first-degree family history of breast cancer. The patient had a prior left breast biopsy. PRIOR EXAMS 09/27/2023, outside priors 09/21/2022, 06/17/2021, 05/14/2020. MAMMOGRAPHY TECHNIQUE: 2D and 3D (tomosynthesis) digital mammographic views obtained, with additional images as needed for full coverage. Current study was also evaluated with a Computer Aided Detection (CAD) system. DENSITY C. The breasts are heterogeneously dense, which may obscure small masses. MAMMOGRAPHY FINDINGS Bilateral: No suspicious mass, asymmetry, microcalcification, or other abnormality seen. IMPRESSION: * No evidence of malignancy. RECOMMENDATIONS Bilateral * Annual screening mammography. OVERALL ASSESSMENT CATEGORY BI-RADS-1: Negative. The [employer] recommends annual screening mammography beginning at age 40 for women with average risk of breast cancer. ELECTRONICALLY SIGNED: Lacey Allen M.D. on 12/18/2024 at 04:15:26 PM PT Interpreting Station ID: [id number]
== END ==
PROVIDERS: Family Provider Family Medicine Geriatric Medicine; PCP Family Medicine; Referring Provider Family Medicine; Visit Provider Family Medicine
DX: Z12.31 Encounter for screening mammogram for malignant neoplasm of breast (principal); R92.333 Mammographic heterogeneous density, bilateral breasts
CPT/HCPCS: 77063; 77067